=== PATIENT | female | born 2000 | race Caucasian/White ===

== ENCOUNTER 2018-04-02 13:03 | Emergency (ER) | payer SELFPAY ==
[2018-04-02 13:36] VITALS: BP 112/67; PULSE 79; RESP 16; TEMP 98.3; O2SAT 100
--- NOTE | 2018-04-02 14:20 | ED PDOC ---
HPI: Wound Care - HPI Time Seen by Provider: 04/02/18 13:41 Chief Complaint (Nursing): Suture/Staple Removal Chief Complaint (Provider): Staple removal - Scalp, placed 14 days ago History Per: Patient Exam Limitations: no limitations Onset/Duration Of Symptoms: Days Current Symptoms Are (Timing): Still Present Additional Complaint(s): 17 yo female with no medical problems presents for staple removal. PT states they were placed 14 days ago. PT denies pain or drainage. Pt reports some itchiness. Pt denies fever/chills. Past Medical History Reviewed: Historical Data, Nursing Documentation, Vital Signs Vital Signs: Last Vital Signs Temp 98.3 F 04/02/18 13:33 Pulse 79 04/02/18 13:33 Resp 16 04/02/18 13:33 BP 112/67 04/02/18 13:33 Pulse Ox 100 04/02/18 13:33 - Medical History PMH: Asthma Denies: Diabetes, HIV, HTN, Seizures, Sexually Transmitted Disease - Surgical History Surgical History: No Surg Hx - Family History Family History: States: Unknown Family Hx - Living Arrangements Living Arrangements: With Family - Social History Current smoker - smoking cessation education provided: No - Home Medications Home Medications: Ambulatory Orders Medication Instructions Recorded Epinephrine [Epipen 2-Gui] 0.3 mg IJ PRN PRN #2 auto.injct 02/12/16 - Allergies Allergies/Adverse Reactions: Allergies Allergy/AdvReac Type Severity Reaction Status Date / Time coconut Allergy ANAPHYLAXIS Verified 04/02/18 13:33 peanut Allergy ANAPHYLAXIS Verified 04/02/18 13:33 Review of Systems ROS Statement: Except As Marked, All Systems Reviewed And Found Negative Constitutional: Negative for: Fever, Chills Skin: Positive for: Other Physical Exam - Reviewed Nursing Documentation Reviewed: Yes Vital Signs Reviewed: Yes - Physical Exam Appears: Positive for: Well, Non-toxic, No Acute Distress Head Exam: Positive for: ATRAUMATIC, NORMAL INSPECTION, NORMOCEPHALIC Skin: Positive for: Warm. Negative for: Normal Color (2cm laceration on the right posterior scalp, well healing, no erythema, no drainage ) Eye Exam: Positive for: Normal appearance ENT: Positive for: Normal ENT Inspection Neck: Positive for: Normal Respiratory: Negative for: Accessory Muscle Use, Respiratory Distress Back: Positive for: Normal Inspection Extremity: Positive for: Normal ROM Neurologic/Psych: Positive for: Alert - ECG O2 Sat by Pulse Oximetry: 100 Medical Decision Making Medical Decision Makin lexx easily removed with staple remover. No complications. Well-tolerated. Disposition - Clinical Impression Clinical Impression: Removal of staple - Patient ED Disposition Is Patient to be Admitted: No Counseled Patient/Family Regarding: Diagnosis, Need For Followup, Rx Given - Disposition Disposition: Routine/Home Disposition Time: 14:18 Condition: GOOD Instructions: Staple Removal
== END 2018-04-02 14:35 | disposition home or self-care (01) ==
LOC: H.ER 13:03
DX: Z48.02 Encounter for removal of sutures (principal)